=== PATIENT | female | born 1955 | race Caucasian/White ===

== ENCOUNTER 2020-08-04 13:00 | Outpatient (REF) | payer MEDICARE, SELFPAY ==
[2020-08-04 13:22] VITALS: BP 176/86; PULSE 63; RESP 16; TEMP 36.5; O2SAT 99
[2020-08-04 13:23] VITALS: BMI 27.8
== END 2020-08-04 13:01 | disposition home or self-care (01) ==
LOC: HO.MS 13:00
PROVIDERS: PCP Internal Medicine; Visit Provider Ophthalmology
PROC: (CPT 67840; principal; 2020-08-04 15:10)
DX: L82.1 Other seborrheic keratosis (principal)
CPT/HCPCS: 67840; 88305

== ENCOUNTER 2020-09-18 07:31 | Outpatient (REF) | payer MEDICARE, SELFPAY ==
--- NOTE | ~2020-09-18 | XR_ITS ---
EXAMINATION: XR KNEE, BILATERAL XR KNEE, RIGHT CLINICAL INFORMATION: Pain COMPARISON: 12/06/2019 TECHNIQUE: AP standing view of both knees. Lateral and sunrise views of the right knee. FINDINGS: Right knee: No fracture or subluxation. Mild medial compartment joint space narrowing. Changes of the patella from prior hardware placement noted. There is a ridge along the patellar articulation with the trochlea, likely from previous fracture. Marginal osteophytes of the patella. No joint effusion. Scattered calcifications in the soft tissues. Left knee: No fracture or subluxation. Mild narrowing of the medial compartment. 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 Mild degenerative changes.
--- NOTE | ~2020-09-18 | XR_ITS ---
EXAMINATION: XR KNEE, BILATERAL XR KNEE, RIGHT CLINICAL INFORMATION: Pain COMPARISON: 12/06/2019 TECHNIQUE: AP standing view of both knees. Lateral and sunrise views of the right knee. FINDINGS: Right knee: No fracture or subluxation. Mild medial compartment joint space narrowing. Changes of the patella from prior hardware placement noted. There is a ridge along the patellar articulation with the trochlea, likely from previous fracture. Marginal osteophytes of the patella. No joint effusion. Scattered calcifications in the soft tissues. Left knee: No fracture or subluxation. Mild narrowing of the medial compartment. 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 Mild degenerative changes.
== END 2020-09-18 07:32 | disposition home or self-care (01) ==
LOC: HO.HOSX 07:31
PROVIDERS: Visit Provider Orthopaedic Surgery
DX: S82.001D Unspecified fracture of right patella, subsequent encounter for closed fracture with routine healing (principal)
CPT/HCPCS: 73560; 73565; 99212

== ENCOUNTER 2020-12-01 01:59 | Emergency (ER) | payer MEDICARE, SELFPAY | END 2020-12-01 02:56 | disposition left against medical advice (07) | PROVIDERS: Emergency Provider Emergency Medicine | DX: M54.30 Sciatica, unspecified side (principal) ==

== ENCOUNTER 2021-11-20 07:12 | Outpatient (REF) | payer MEDICARE, SELFPAY ==
--- NOTE | ~2021-11-20 | XR_ITS ---
EXAMINATION: XR KNEE, RIGHT CLINICAL INFORMATION: Right knee pain COMPARISON: Right knee 09/18/2020. TECHNIQUE: 2 views of the right knee. FINDINGS: There is loss of tricompartment joint space without bony erosive changes. There is no acute fracture, dislocation or loose body seen. Posttraumatic right patellar changes are stable. No abnormal joint effusion. XR/XR knee RT 2V IMPRESSION: Mild degenerative arthritic changes of right knee. Posttraumatic patellar changes are stable. There is no visible acute fracture or dislocation.
== END 2021-11-20 07:13 | disposition home or self-care (01) ==
LOC: HO.HOSX 07:12
PROVIDERS: Visit Provider Orthopaedic Surgery
DX: M17.31 Unilateral post-traumatic osteoarthritis, right knee (principal)
CPT/HCPCS: 73560; 99212

== ENCOUNTER 2023-04-20 03:33 | Inpatient (IN) | payer MEDICARE, SELFPAY ==
[2023-04-20 03:38] VITALS: BP 186/113; PULSE 144; RESP 18; TEMP 36.6; O2SAT 97; BMI 25.7
--- NOTE | 2023-04-20 03:54 | ED.ARRPALP ---
HPI - Arrhythmia/Palpitations General Chief Complaint: Arrhythmia/Palpitations Stated Complaint: ?Afib Time Seen by Provider: 04/20/23 03:56 Source: patient Mode of arrival: ambulatory Limitations: no limitations History of Present Illness HPI narrative: 67-year-old female with history of paroxysmal atrial fibrillation woke up from sleep with palpitation, chest discomfort, feeling dizzy and lightheadedness patient checked her pulse found herself in irregular rapid pulse. Patient is taking Eliquis regularly, patient required cardioversion in the past. Patient now declined CP or SOB, no fever, no chills. Related Data Home Medications Medication Instructions Recorded Confirmed lisinopril 30 mg tablet 30 mg PO DAILY 09/18/20 lorazepam 1 mg tablet 1 mg PO TID PRN 09/18/20 metoprolol succinate 100 mg 150 mg PO DAILY 09/18/20 tablet,extended release 24 hr pravastatin 20 mg tablet 20 mg PO DAILY 09/18/20 Allergies Allergy/AdvReac Type Severity Reaction Status Date / Time epinephrine [EPINEPHRINE] Allergy Severe SEVERE Unverified 03/27/20 15:32 TACHYCARDIA latex [Latex] Allergy Intermediate HIVES Unverified 03/27/20 15:32 penicillin G [Penicillin G] Allergy Intermediate HIVES Unverified 03/27/20 15:32 Sulfa (Sulfonamide Allergy Intermediate HIVES Unverified 03/27/20 15:32 Antibiotics) vancomycin [VANCOMYCIN] Allergy Mild ITCHY Unverified 03/27/20 15:32 Latex Allergy Allergy Unknown Uncoded 03/18/20 00:00 Penicillin Allergy Unknown hives Uncoded 03/18/20 00:00 Sulfa Allergy Unknown Hives Uncoded 03/18/20 00:00 Review of Systems Review of Systems: All other systems are reviewed and are negative Constitutional: Reports as per HPI and Reports no additional constitutional complaints Eyes: Reports as per HPI and Reports no additional eye complaints Reports system reviewed and no additional complaints, except as documented Cardiovascular: Reports as per HPI and Reports no additional cardiovascular complaints Respiratory: Reports as per HPI and Reports no additional respiratory complaints Gastrointestinal: Reports as per HPI and Reports no additional gastrointestinal complaints Genitourinary: Reports no additional female genitourinary complaints Musculoskeletal: Reports no additional musculoskeletal complaints Skin/Breast: Reports system reviewed and no additional complaints, except as docu Psychiatric: Reports no additional psychiatric complaints Endocrine: Reports no additional endocrine complaints Hematologic/Lymphatic: Reports no additional hematologic/lymphatic complaints Allergic/Immunologic: Reports no additional allergic/immunologic complaints Reports system reviewed and no additional complaints, except as documented and Reports Abnormal speech present [facility] Past Medical History Medical History Depression Prediabetes Afib Surgical History H/O: hysterectomy Social History Social History Smoked in Last 30 Days: No Use of substances other than those prescribed or required for medical reasons: No Advance Directives: No Advance Directives Information Provided: Yes 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 Blood pressure elevated. Heart rate elevated. Respiratory rate normal. Temperature normal. Oxygen saturation normal. Appearance: Alert. Oriented X3. No acute distress. Head: Normal external exam. Normocephalic. Atraumatic. No Kenny signs noted. No raccoon eyes noted Eyes: PERRLA. EOMI. Conjunctiva and sclera normal. Eyelids normal. ENT: TM's Normal. Pharynx normal. Uvula midline. Moist mucous membranes. No trismus noted. No drooling noted. No muffled voice noted. Neck: Normal inspection. Neck supple. FROM. No adenopathy. Thyroid Normal. No meningeal signs. No neck mass noted. CVS: Normal heart rate and rhythm. Heart sound normal. No murmurs noted. Pulses normal throughout. Respiratory: No respiratory distress. Painless inspiration. Breath sounds normal. No wheezes/rales/rhonchi noted. Chest nontender. No accessory muscle usage noted or decreased air movement noted. Abdomen: Soft and nontender. Bowel sounds normal in all 4 quadrants. No distention noted. No organomegaly noted. No visible injury noted. Back: No CVA tenderness. Full range of motion noted. Skin: Skin warm and dry. Normal skin color. Normal skin turgor. No rashes/lesions/lacerations noted. Extremities: No lower extremity edema. Extremities exhibit normal range of motion. Extremities nontender. Neuro: Oriented X 3. Cranial nerve exam: II-XII are grossly intact No motor deficit. No sensory deficit. Reflexes normal. Course Reevaluation(s) Reevaluation #1: 67-year-old female with history of paroxysmal atrial fibrillation on Eliquis came in with rapid atrial fibrillation responded well in the emergency department to Cardizem patient will be on Cardizem drip patient has unremarkable labs and chest x-ray. Time: 04:47 Medications Administered Discontinued Medications Generic Name Dose Route Start Last Admin Trade Name Freq PRN Reason Stop Dose Admin Diltiazem HCl 20 mg 04/20/23 03:44 04/20/23 03:56 Diltiazem Hcl 50 Mg/10 Ml Vial IVPUSH 04/20/23 03:45 20 mg STAT STA Administration Medical Decision Making Differential Diagnosis Differential Diagnoses: The differential diagnosis associated with the presentation includes (CHF, ACS, pneumonia, pneumothorax, pleural effusion, electrolyte abnormality, severe anemia, anxiety, rapid atrial fibrillation.) Admission/Observation Consideration of admission/observation: Escalation of care including admission/observation considered Consult Healthcare Provider Management of the patient was discussed with: Hospitalist (Dr. Salter) Lab Data MDM Lab Attestation statement: I reviewed the patient's lab results. 04/20/23 03:52 04/20/23 03:52 Labs: Lab Results 04/20/23 04/20/23 Range/Units 03:52 04:09 WBC 7.6 (4.8-10.8) X10*3/uL RBC 5.06 (4.20-5.50) X10*6/uL Hgb 15.6 (12.0-16.0) g/dl Hct 44.7 (37.0-47.0) % MCV 88.3 (80.0-98.0) fL MCH 30.8 (27.0-33.0) pg MCHC 34.9 (31.0-35.0) g/dl RDW 12.3 (11.0-16.0) % Plt Count 252 (160-400) X10*3/uL MPV 8.8 L (9.4-12.3) fL Immature Gran % (Auto) 0.3 (0.0-0.4) % Neut % (Auto) 42.4 L (45-73) % Lymph % (Auto) 44.6 H (20-40) % [place] % (Auto) 8.5 (2-11) % Eos % (Auto) 3.5 (0-4) % Baso % (Auto) 0.7 (0-2) % Lymph # (Auto) 3.4 (1.2-4.9) X10*3/uL [place] # (Auto) 0.7 (0.1-1.2) X10*3/uL Eos # (Auto) 0.3 (0.0-0.4) X10*3/uL Baso # (Auto) 0.1 (0.0-0.2) X10*3/uL Abs Immat Gran (auto) 0.02 (0.00-0.03) X10*3/uL Absolute Neuts (auto) 3.2 (2.0-8.3) x10*3/uL Absolute Nucleated RBC 0.000 (0.0-0.012) X10*3/uL Nucleated RBC % (auto) 0.0 (0.0-0.2) /100WBC PT 13.8 H (11.1-13.3) SEC INR 1.1 (0.9-1.1) Sodium 139 (135-145) mmol/L Potassium 3.4 (3.3-5.1) mmol/L Chloride 102 (96-108) mmol/L Carbon Dioxide 23 (22-29) mmol/L Anion Gap 17 (12-20) BUN 16 (9-16) mg/dL Creatinine 0.82 (0.5-1.4) mg/dL Estim Creat Clear Calc 61.3 Estimated GFR > 60 Random Glucose 155 H (60-115) mg/dL Calcium 9.9 (8.4-10.2) mg/dL Total Bilirubin 0.4 (0.0-1.0) mg/dL Direct Bilirubin 0.1 (0.0-0.5) mg/dL AST 14 (5-31) U/L ALT 10 (0-31) U/L Alkaline Phosphatase 59 (39-117) U/L Troponin I High Sens < 2.7 (<3.5-17.0) ng/L B-Natriuretic Peptide 58 (<100) pg/mL Total Protein 7.7 (6.5-8.0) g/dL Albumin 4.5 (3.5-5.0) g/dL Lipase 42 (8-78) U/L Independent Interpretation I performed an independent interpretation of an: EKG (Atrial fibrillation at 01:36 B p.m., otherwise unremarkable intervals, no ischemic changes.) and Plain X-Ray (No acute intrathoracic pathology.) Radiology Impression Discussion of test interpretation with radiology: I have reviewed the radiologist's reading. Chronic Conditions Patient?s care impacted by: Hypertension and Other (Paroxysmal atrial fibrillation) Critical Care Time Critical Care Time Critical Care Time: Yes Total Critical Care Time: 60 Attestation: I spent 60 minutes providing critical care service to the patient, this including time spent at the bedside to evaluate the patient, reassess the patient, monitoring vital signs, review labs, and radiographic studies, counseling the patient/family, discussing the case with consultants, disposition the patient. Discharge Plan Discharge Clinical Impression: Atrial fibrillation with rapid ventricular response Patient Disposition: Admitted As Inpatient
[2023-04-20 04:01] VITALS: BP 186/113; PULSE 115; RESP 16; O2SAT 98
[2023-04-20 04:10] VITALS: BP 164/83; PULSE 72; RESP 16; O2SAT 95
[2023-04-20 04:51] VITALS: BP 137/70; PULSE 74; RESP 15; O2SAT 95
--- NOTE | 2023-04-20 04:52 | PM.IMHP ---
History of Present Illness Date of Service: 04/20/23 Chief Complaint: Palpitations This is a 67-year-old female with pertinent history of atrial fib on Eliquis, essential hypertension, mixed hyperlipidemia, mood disorder who presents to the emergency department for evaluation of palpitations. Patient states she woke up at 02:00 to use the restroom when she started having pounding of her chest. It was constant and without any relief. 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 Is compliant with p.o. metoprolol and Eliquis. Was previously cardioverted. She denies fever, chills, chest discomfort, shortness of breath, abdominal pain, changes in urinary or bowel habits. In the emergency department, patient was initiated on IV diltiazem drip Review of Systems Constitutional: Constitutional: Reports no additional constitutional complaints Cardiovascular: Cardiovascular: Reports rapid heart rate, Reports irregular heart rhythm and Reports palpitations Respiratory: Respiratory: Reports no additional respiratory complaints Gastrointestinal: Gastrointestinal: Reports no additional gastrointestinal complaints Genitourinary: Genitourinary: Reports no additional female genitourinary complaints Endocrine: Endocrine: Reports palpitations [facility], [facility] Medical History Depression Prediabetes Afib Pertinent family history: No Family history of early CAD Surgical History H/O: hysterectomy Social History Smoked in Last 30 Days: No Use of substances other than those prescribed or required for medical reasons: No Advance Directives: No Advance Directives Information Provided: Yes 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 Allergies Allergy/AdvReac Type Severity Reaction Status Date / Time epinephrine [EPINEPHRINE] Allergy Severe SEVERE Unverified 03/27/20 15:32 TACHYCARDIA latex [Latex] Allergy Intermediate HIVES Unverified 03/27/20 15:32 penicillin G [Penicillin G] Allergy Intermediate HIVES Unverified 03/27/20 15:32 Sulfa (Sulfonamide Allergy Intermediate HIVES Unverified 03/27/20 15:32 Antibiotics) vancomycin [VANCOMYCIN] Allergy Mild ITCHY Unverified 03/27/20 15:32 Latex Allergy Allergy Unknown Uncoded 03/18/20 00:00 Penicillin Allergy Unknown hives Uncoded 03/18/20 00:00 Sulfa Allergy Unknown Hives Uncoded 03/18/20 00:00 Active Medications: Current Medications Diltiazem HCl 125 mg/ Sodium (Chloride) 125 mls @ 0 mls/hr IVCONT .Q0M [place]; Protocol Home Medications Medication Instructions Recorded Confirmed Last Taken Type lisinopril 30 mg tablet 30 mg PO DAILY 09/18/20 Unknown History lorazepam 1 mg tablet 1 mg PO TID PRN 09/18/20 Unknown History metoprolol succinate 100 mg 150 mg PO DAILY 09/18/20 Unknown History tablet,extended release 24 hr pravastatin 20 mg tablet 20 mg PO DAILY 09/18/20 Unknown History Physical Exam Vital Signs and Narrative: Vital Signs: Last Vital Signs Temp 97.8 F 04/20/23 03:38 Pulse 74 04/20/23 04:51 Resp 15 04/20/23 04:51 BP 137/70 04/20/23 04:51 Pulse Ox 95 04/20/23 04:51 O2 Del Method Room Air 04/20/23 04:51 BMI result Body Mass Index 25.7 Middle-aged female lying in bed in no distress Neck supple, no JVD Irregularly irregular Regular breath sounds bilaterally, no wheezing or crackles appreciated Abdomen soft nontender, no guarding, no rigidity Patient is awake, alert and oriented to self, place, time and person ; no focal motor deficit Psych: Normal mood No pedal edema Results Labs 04/20/23 03:52 04/20/23 03:52 Labs: Laboratory Results - last 24 hr 04/20/23 04/20/23 03:52 04:09 MCV 88.3 MCH 30.8 MCHC 34.9 RDW 12.3 Plt Count 252 MPV 8.8 L Immature Gran % (Auto) 0.3 Neut % (Auto) 42.4 L Lymph % (Auto) 44.6 H [place] % (Auto) 8.5 Eos % (Auto) 3.5 Baso % (Auto) 0.7 Lymph # (Auto) 3.4 [place] # (Auto) 0.7 Eos # (Auto) 0.3 Baso # (Auto) 0.1 Abs Immat Gran (auto) 0.02 Absolute Neuts (auto) 3.2 Absolute Nucleated RBC 0.000 Nucleated RBC % (auto) 0.0 PT 13.8 H INR 1.1 Anion Gap 17 Estim Creat Clear Calc 61.3 Estimated GFR > 60 Random Glucose 155 H Calcium 9.9 Total Bilirubin 0.4 Direct Bilirubin 0.1 AST 14 ALT 10 Alkaline Phosphatase 59 B-Natriuretic Peptide 58 Total Protein 7.7 Albumin 4.5 Lipase 42 Imaging Radiologist's Impressions: Impressions Chest X-Ray 04/20/23 03:55 IMPRESSION: Unremarkable examination. Assessment and Plan (1) Atrial fibrillation with rapid ventricular response: Status: Acute Plan This is a 67-year-old female with pertinent history of atrial fib on Eliquis, essential hypertension, mixed hyperlipidemia, mood disorder who presents to the emergency department for evaluation of palpitations. #. AFib with RVR. Initiated on Cardizem drip in the ER. Will admit patient with cardiac monitoring. Consulted Cardiology, appreciate assistance. He is on Eliquis. Obtaining TSH #. Mixed hyperlipidemia. On statin #. Essential hypertension. Continue home antihypertensives #. Mood disorder. On lorazepam Med rec pending DVT prophylaxis: Eliquis Full code Admit as inpatient and will require two night minimum hospital stay for IV Cardizem. Specialist consult pending Time Spent With Patient Time: Total time managing care of this patient today ____ minutes. Quality Stroke Does the patient have a stroke diagnosis?: No VTE Prior VTE?: No VTE Risk Level:: Medical - moderate - high VTE Device Contraindication: Treatment Not Indicated VTE Drug Contraindication: N/A - Med Ordered
[2023-04-20 06:13] VITALS: BP 141/78; PULSE 95; RESP 18; O2SAT 97
[2023-04-20 06:54] LABS: Anion Gap 16 (12-20); Blood Urea Nitrogen 14 mg/dL (9-16); Calcium 9.7 mg/dL (8.4-10.2); Carbon Dioxide 26 mmol/L (22-29); Chloride 104 mmol/L (96-108); Creatinine Clr Calc Pharmacy 64.4; Estimated Glomerular Filt Rate > 60; Glucose Random 141 mg/dL (60-115); Potassium 4.3 mmol/L (3.3-5.1); Sodium 142 mmol/L (135-145)
--- NOTE | 2023-04-20 07:26 | PC.NURSE ---
Resumed care of patient this morning, she is alert and oriented, she is very upset when this teletypewriter operator entered the room with a dilt drip, Pt reporting she did not know she was getting admitted, and that she does not feel comfortable on dilt, she has a home cards she wants to be communicated with. Emotional support given, HR 70-80's. dilt drip held at this time, provider notified of plan to hold drip, and asked to come down and speak with the patient about her concerns at this time. She is currently sitting on the edge of the bed eating breakfast.
--- NOTE | 2023-04-20 08:16 | PHA.MEDREC ---
Pharmacy Consult ? Medication Reconciliation Pharmacy has completed the medication reconciliation. Spoke to pt to confirm medications. She states she uses a combination of the [place] [facility] on [facility] [facility] in [place] and the [facility] pharmacy on [address] [facility] in [place]. Some medications were able to be confirmed with claim history and pdmp, but she is a good historian and knows the names and strengths of her medications. She is very specific about the times she takes her medications.
--- NOTE | 2023-04-20 09:08 | MHC.CM.PN ---
PT REPORTS SHE LIVES WITH HER AND IS INDEPENDENT WITH CARE PT DENIES USE OF DME OR HOME SERVICES COPY OF HCP REQUESTED, SHE STATES IT IS HER PT REPORTS SHE IS 100% SERVICE CONNECTED SHE SEES KYLE SCANLON AT THE [place] [facility] AT [place] SHE IS ALSO ACTIVE WITH A TECHNOLOGY STRATEGIST IN [place] DELIVERED DCP: HOME NO SERVICES PT WILL DRIVE HERSELF AT DC
[2023-04-20 11:08] VITALS: BP 146/75; PULSE 64; RESP 14; TEMP 36.7; O2SAT 95
--- NOTE | 2023-04-20 11:54 | PM.DS ---
DS: Providers Provider Date of Service: 04/20/23 Date of admission: 04/20/23 04:50 Date of discharge: 04/20/23 Primary care physician: Unknown Physician Consults: 04/20/23 04:52 Consult to Cardiology Routine Consulting Provider: [facility] Reason for consultation: afib with rvr Has provider been notified: Yes DS: Diagnosis Discharge Diagnosis (1) Atrial fibrillation with rapid ventricular response: Status: Acute DS: Summary Hospital Course Hospital Course: 67-year-old female with pertinent history of atrial fib on Eliquis, essential hypertension, mixed hyperlipidemia, mood disorder who presents to the emergency department for evaluation of palpitations. Patient states she woke up at 02:00 to use the restroom when she started having pounding of her chest. It was constant and without any relief. 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 Is compliant with p.o. metoprolol and Eliquis. Was previously cardioverted. She denies fever, chills, chest discomfort, shortness of breath, abdominal pain, changes in urinary or bowel habits. Was scheduled in ER for Cardizem drip however patient spontaneously converted back to sinus rhythm. At this point in time she states she is aware when she goes into atrial fibrillation; can sense of rapid response. Continues compliance with Eliquis. Given her awareness of her AFib/rate and her ongoing anticoagulation is reasonable that she do discharge to home at her request to follow-up with her new customer care manager. She understands to return if rate poorly control Time Spent with Patient Time attestation: Total time managing care of this patient today ____ minutes. Discharge coordination time: Greater than 30 minutes Quality: Safe Use of Opioids Does Pt have an Active Cancer Diagnosis on the Problem List?: No Quality: Stroke Does the patient have a stroke diagnosis?: No Physical Exam Vital Signs: Vital Signs: Last Vital Signs Temp 98.0 F 04/20/23 11:08 Pulse 64 04/20/23 11:08 Resp 14 04/20/23 11:08 BP 146/75 H 04/20/23 11:08 Pulse Ox 95 04/20/23 11:08 O2 Del Method Room Air 04/20/23 11:08 BMI result Body Mass Index 25.7 Const: Other: Awake alert oriented x3 Resp: Other: Clear to auscultation bilaterally no rales rhonchi or wheezes Cardio: Other: No S4; positive S1-S2; no S3 murmurs rubs or gallops; regular rate rhythm GI: Other: Soft nontender nondistended normoactive bowel sounds Extrem: Other: No edema bilateral DS: Data Data Completed and Pending Labs on day of discharge: Laboratory Results - last 24 hr 04/20/23 04/20/23 04/20/23 03:52 04:09 06:23 WBC 7.6 8.6 RBC 5.06 4.91 Hgb 15.6 15.3 Hct 44.7 44.4 MCV 88.3 90.4 MCH 30.8 31.2 MCHC 34.9 34.5 RDW 12.3 12.5 Plt Count 252 257 MPV 8.8 L 9.2 L Immature Gran % (Auto) 0.3 0.3 Neut % (Auto) 42.4 L 70.6 Lymph % (Auto) 44.6 H 21.1 [place] % (Auto) 8.5 6.1 Eos % (Auto) 3.5 1.4 Baso % (Auto) 0.7 0.5 Lymph # (Auto) 3.4 1.8 [place] # (Auto) 0.7 0.5 Eos # (Auto) 0.3 0.1 Baso # (Auto) 0.1 0.0 Abs Immat Gran (auto) 0.02 0.03 Absolute Neuts (auto) 3.2 6.1 Absolute Nucleated RBC 0.000 0.000 Nucleated RBC % (auto) 0.0 0.0 PT 13.8 H INR 1.1 Sodium 139 142 Potassium 3.4 4.3 D Chloride 102 104 Carbon Dioxide 23 26 Anion Gap 17 16 BUN 16 14 Creatinine 0.82 0.78 Estim Creat Clear Calc 61.3 64.4 Estimated GFR > 60 > 60 Random Glucose 155 H 141 H Calcium 9.9 9.7 Total Bilirubin 0.4 Direct Bilirubin 0.1 AST 14 ALT 10 Alkaline Phosphatase 59 Troponin I High Sens < 2.7 B-Natriuretic Peptide 58 Total Protein 7.7 Albumin 4.5 Lipase 42 Urine Color Urine Appearance Urine pH Ur Specific [place] Urine Protein Urine Glucose (UA) Urine Ketones Urine Blood Urine Nitrite Ur Leukocyte Esterase Influenza Type A (PCR) NEGATIVE Influenza Type B (PCR) NEGATIVE RSV RNA Qual (PCR) NEGATIVE SARS-CoV-2 RNA (RT-PCR) NEGATIVE 04/20/23 08:28 WBC RBC Hgb Hct MCV MCH MCHC RDW Plt Count MPV Immature Gran % (Auto) Neut % (Auto) Lymph % (Auto) [place] % (Auto) Eos % (Auto) Baso % (Auto) Lymph # (Auto) [place] # (Auto) Eos # (Auto) Baso # (Auto) Abs Immat Gran (auto) Absolute Neuts (auto) Absolute Nucleated RBC Nucleated RBC % (auto) PT INR Sodium Potassium Chloride Carbon Dioxide Anion Gap BUN Creatinine Estim Creat Clear Calc Estimated GFR Random Glucose Calcium Total Bilirubin Direct Bilirubin AST ALT Alkaline Phosphatase Troponin I High Sens B-Natriuretic Peptide Total Protein Albumin Lipase Urine Color Yellow Urine Appearance Clear Urine pH 7.0 Ur Specific [place] 1.010 Urine Protein Negative Urine Glucose (UA) Negative Urine Ketones Negative Urine Blood Negative Urine Nitrite Negative Ur Leukocyte Esterase Negative Influenza Type A (PCR) Influenza Type B (PCR) RSV RNA Qual (PCR) SARS-CoV-2 RNA (RT-PCR) Discharge Plan Discharge Anticipated Discharge Date/Time: 04/20/23 11:50 Patient Disposition: Home, Self-Care Discharge Diagnosis: Atrial fibrillation with rapid ventricular response Referrals: Physician,Candido J [Primary Care Provider] - 1 Week Discharge Medications: Continued acetaminophen 500 mg Tablet 1,000 mg PO TID lorazepam 1 mg tablet 2 mg PO BEDTIME lisinopril 40 mg Tablet 40 mg PO DAILY apixaban 5 mg Tablet 5 mg PO BID metoprolol succinate 100 mg tablet extended release 24 hr 150 mg PO BEDTIME pravastatin 20 mg tablet 20 mg PO BEDTIME lorazepam 1 mg tablet 1 mg PO DAILY@1500 Discharge Orders: Discharge Order (Routine); Ordered 04/20/23 Ordered By: Vishal Garcia Diet: Advance to usual diet Activity on Discharge: As tolerated Stand Alone Forms: Patient Portal Discharge page Care Plan Goals: Resume all medicines as taken prior to the hospital Health Concerns: Return to the hospital if you feel your heart is racing we developed any kind of chest pain Plan of Treatment: Follow-up with her new customer care manager as scheduled Assessment: See discharge summary
--- NOTE | 2023-04-20 12:10 | PM.CNCAR ---
History of Present Illness History of Present Illness Date of Service: 04/20/23 Requesting physician: Vishal Garcia Chief complaint: Palpitations Narrative: [age] year female who was known history of atrial fibrillation presenting with palpitations AFib with RVR. It appears she was given Cardizem in the emergency department which led to rate control and eventually she converted back to sinus rhythm. She has history of depression, anxiety and hypertension. She has been on apixaban for long time for stroke prevention. She has no bleeding concerns. She started seeing a inventory control/shipping receiving in [place] and will be following up there. Overall doing well at this point. No chest pain or shortness of breath otherwise. No signs of heart failure. [facility] Past Medical History Medical History Depression Prediabetes Afib Surgical History Surgical History H/O: hysterectomy Social History Social History Patient Tobacco Use Status: Never used Tobacco Smoked in Last 30 Days: No Use of substances other than those prescribed or required for medical reasons: No Advance Directives: No Advance Directives Information Provided: Yes Nutrition Risks: No Nutritional Risk service: Yes Current occupation: [employer] Allergies Allergy/AdvReac Type Severity Reaction Status Date / Time epinephrine [EPINEPHRINE] Allergy Severe SEVERE Verified 04/20/23 08:39 TACHYCARDIA latex [Latex] Allergy Intermediate HIVES Verified 04/20/23 08:39 penicillin G [Penicillin G] Allergy Intermediate HIVES Verified 04/20/23 08:39 Sulfa (Sulfonamide Allergy Intermediate HIVES Verified 04/20/23 08:39 Antibiotics) vancomycin [VANCOMYCIN] Allergy Mild ITCHY Verified 04/20/23 08:39 Latex Allergy Allergy Mild Itching Uncoded 04/20/23 08:39 Penicillin Allergy Mild hives Uncoded 04/20/23 08:39 Sulfa Allergy Mild Hives Uncoded 04/20/23 08:39 Active Medications: Current Medications Acetaminophen (Acetaminophen 325 Mg Tablet) 650 mg PO Q6H PRN PRN Reason: Pain, Mild (Pain Scale 1-3) Diltiazem HCl 125 mg/ Sodium (Chloride) 125 mls @ 0 mls/hr IVCONT .Q0M [facility]; Protocol Melatonin (Melatonin 3 Mg Tablet) 6 mg PO BEDTIME PRN PRN Reason: Insomnia Ondansetron HCl (Ondansetron Hcl 4 Mg/2 Ml Vial) 4 mg IVPUSH Q8H PRN PRN Reason: Nausea and Vomiting Sodium Chloride (0.9 % Sodium Chloride Flush 3 Ml Syringe) 3 ml IVFLUSH QSHIFT [facility] Last Admin: 04/20/23 08:39 Dose: 3 ml Home Medications Medication Instructions Recorded Confirmed Last Taken Type lorazepam 1 mg tablet 1 mg PO DAILY@1500 09/18/20 04/20/23 04/19/23 History metoprolol succinate 100 mg 150 mg PO BEDTIME 09/18/20 04/20/23 04/19/23 History tablet,extended release 24 hr pravastatin 20 mg tablet 20 mg PO BEDTIME 09/18/20 04/20/23 04/19/23 History acetaminophen 500 mg tablet 1,000 mg PO TID 04/20/23 04/20/23 04/19/23 History apixaban 5 mg tablet 5 mg PO BID 04/20/23 04/20/23 04/19/23 History lisinopril 40 mg tablet 40 mg PO DAILY 04/20/23 04/20/23 04/19/23 History lorazepam 1 mg tablet 2 mg PO BEDTIME 04/20/23 04/20/23 04/19/23 History Physical Exam Vital Signs: Vital Signs: Last Vital Signs Temp 98.0 F 04/20/23 11:08 Pulse 64 04/20/23 11:08 Resp 14 04/20/23 11:08 BP 146/75 H 04/20/23 11:08 Pulse Ox 95 04/20/23 11:08 O2 Del Method Room Air 04/20/23 11:08 BMI result Body Mass Index 25.7 GENERAL APPEARANCE: in no acute distress, pleasant. NECK: no carotid bruit, no jugular venous distention. SKIN: no suspicious lesions, warm and dry. HEART: no murmurs, regular rate and rhythm. LUNGS: clear to auscultation bilaterally. ABDOMEN: soft, nontender. EXTREMITIES: no edema. PERIPHERAL PULSES: equal. NEUROLOGIC: No gross deficits, AAO X 3 Objective Labs and Meds 04/20/23 06:23 04/20/23 06:23 Lab results: Laboratory Results - last 24 hr 04/20/23 04/20/23 04/20/23 03:52 04:09 06:23 WBC 7.6 8.6 RBC 5.06 4.91 Hgb 15.6 15.3 Hct 44.7 44.4 MCV 88.3 90.4 MCH 30.8 31.2 MCHC 34.9 34.5 RDW 12.3 12.5 Plt Count 252 257 MPV 8.8 L 9.2 L Immature Gran % (Auto) 0.3 0.3 Neut % (Auto) 42.4 L 70.6 Lymph % (Auto) 44.6 H 21.1 Clare % (Auto) 8.5 6.1 Eos % (Auto) 3.5 1.4 Baso % (Auto) 0.7 0.5 Lymph # (Auto) 3.4 1.8 Clare # (Auto) 0.7 0.5 Eos # (Auto) 0.3 0.1 Baso # (Auto) 0.1 0.0 Abs Immat Gran (auto) 0.02 0.03 Absolute Neuts (auto) 3.2 6.1 Absolute Nucleated RBC 0.000 0.000 Nucleated RBC % (auto) 0.0 0.0 PT 13.8 H INR 1.1 Sodium 139 142 Potassium 3.4 4.3 D Chloride 102 104 Carbon Dioxide 23 26 Anion Gap 17 16 BUN 16 14 Creatinine 0.82 0.78 Estim Creat Clear Calc 61.3 64.4 Estimated GFR > 60 > 60 Random Glucose 155 H 141 H Calcium 9.9 9.7 Total Bilirubin 0.4 Direct Bilirubin 0.1 AST 14 ALT 10 Alkaline Phosphatase 59 Troponin I High Sens < 2.7 B-Natriuretic Peptide 58 Total Protein 7.7 Albumin 4.5 Lipase 42 Urine Color Urine Appearance Urine pH Ur Specific [place] Urine Protein Urine Glucose (UA) Urine Ketones Urine Blood Urine Nitrite Ur Leukocyte Esterase Influenza Type A (PCR) NEGATIVE Influenza Type B (PCR) NEGATIVE RSV RNA Qual (PCR) NEGATIVE SARS-CoV-2 RNA (RT-PCR) NEGATIVE 04/20/23 08:28 WBC RBC Hgb Hct MCV MCH MCHC RDW Plt Count MPV Immature Gran % (Auto) Neut % (Auto) Lymph % (Auto) [place] % (Auto) Eos % (Auto) Baso % (Auto) Lymph # (Auto) Clare # (Auto) Eos # (Auto) Baso # (Auto) Abs Immat Gran (auto) Absolute Neuts (auto) Absolute Nucleated RBC Nucleated RBC % (auto) PT INR Sodium Potassium Chloride Carbon Dioxide Anion Gap BUN Creatinine Estim Creat Clear Calc Estimated GFR Random Glucose Calcium Total Bilirubin Direct Bilirubin AST ALT Alkaline Phosphatase Troponin I High Sens B-Natriuretic Peptide Total Protein Albumin Lipase Urine Color Yellow Urine Appearance Clear Urine pH 7.0 Ur Specific [place] 1.010 Urine Protein Negative Urine Glucose (UA) Negative Urine Ketones Negative Urine Blood Negative Urine Nitrite Negative Ur Leukocyte Esterase Negative Influenza Type A (PCR) Influenza Type B (PCR) RSV RNA Qual (PCR) SARS-CoV-2 RNA (RT-PCR) Imaging Radiologist's impression: Impressions Chest X-Ray 04/20/23 03:55 IMPRESSION: Unremarkable examination. Assessment and Plan (1) Atrial fibrillation with rapid ventricular response: Status: Acute Plan 67-year-old female with paroxysmal atrial fibrillation. She is on Toprol-XL 150 mg daily and apixaban 5 mg twice a day. She has not had the prolonged episode of atrial fibrillation for long time and has not been the emergency department in the last couple years. She is back in sinus rhythm at this point. She has a inventory control/shipping receiving in [place]. I have given her the options to start Multaq or see her inventory control/shipping receiving and get a stress test and if that is normal consider pill in the pocket approach with flecainide/propafenone. She is more interested in pill in the pocket approach and will be discussing this with her inventory control/shipping receiving. Blood pressure is elevated but she is also quite anxious right now. This will need close monitoring through her primary care physician and inventory control/shipping receiving. Thank you for allowing me to participate in the care of your patient. Please feel free to contact me if you have any questions. Time Spent With Patient Time: Total time managing care of this patient today ____ minutes. Procedures Date of Service Date of Service: 04/20/23
== END 2023-04-20 14:00 | disposition home or self-care (01) | DRG 310 ==
LOC: HO.ED 04:52 → HO.EDOVER 04:54
PROVIDERS: Admitting Provider Student in an Organized Health Care Education/Training Program; Emergency Provider Emergency Medicine; PCP Internal Medicine; Visit Provider Hospitalist
DX: I48.91 Unspecified atrial fibrillation (principal); F39 Unspecified mood [affective] disorder; E78.2 Mixed hyperlipidemia; Z20.822 Contact with and (suspected) exposure to COVID-19; Z91.040 Latex allergy status; Z79.01 Long term (current) use of anticoagulants; Z79.899 Other long term (current) drug therapy; Z03.818 Encounter for observation for suspected exposure to other biological agents ruled out
CPT/HCPCS: 0241U; 36415; 71045; 80048; 80076; 81003; 83690; 83880; 84484; 85025; 85610; 93005; 99285; J2060

== ENCOUNTER → 2023-04-20 04:50 | Outpatient (BNV) | payer MEDICARE, SELFPAY | PROVIDERS: Admitting Provider Student in an Organized Health Care Education/Training Program; Emergency Provider Emergency Medicine; Visit Provider Student in an Organized Health Care Education/Training Program | DX: I48.91 Unspecified atrial fibrillation (principal) | CPT/HCPCS: 99235; 99499 ==

== ENCOUNTER → 2023-04-20 04:50 | Outpatient (BNV) | payer MEDICARE, SELFPAY | PROVIDERS: Admitting Provider Student in an Organized Health Care Education/Training Program; Emergency Provider Emergency Medicine; Visit Provider Internal Medicine Cardiovascular Disease | DX: I48.91 Unspecified atrial fibrillation (principal) | CPT/HCPCS: 99222 ==